=== PATIENT | female | born 1990 | race American Indian/Alaskan Native ===

== ENCOUNTER 2019-05-07 12:26 | Emergency (ER) | payer SELFPAY ==
--- NOTE | 2019-05-07 12:43 | Event Note ---
ED Screening Note Date of service: 05/07/19 Time: 12:41 ED Screening Note: This is a 28 y.o. F. that presents to the ER with back pain, fever, and dysuria x 1 week. This initial assessment/diagnostic orders/clinical plan/treatment(s) is/are subject to change based on patients health status, clinical progression and re- assessment by fellow clinical providers in the ED. Further treatment and workup at subsequent clinical providers discretion. Patient/guardian urged not to elope from the ED as their condition may be serious if not clinically assessed and managed. Initial orders include: UA & urine hCG
[2019-05-07 12:44] VITALS: BP 160/99
--- NOTE | 2019-05-07 13:51 | Emergency Department Report ---
ED Female HPI - General Chief complaint: Back Pain/Injury Stated complaint: BACK PAIN/TEMP/HEADACHE/FATIGUE Time Seen by Provider: 05/07/19 12:41 Source: patient Mode of arrival: Ambulatory Limitations: No Limitations - History of Present Illness Initial comments: 28 yo female c/o painful urination and low back pain x 1 week. Low abdominal pain x 3 days associated with fever and chills. She denies vomiting and diarrhea. MD Complaint: dysuria -: week(s) (1) Radiation: suprapubic Quality: aching Consistency: constant Improves with: none Worsens with: none Are you Now?: No Associated Symptoms: abdominal pain, fever/chills, dysuria. denies: vaginal discharge, vaginal bleeding, nausea/vomiting, loss of appetite, hematuria, rash, seizure - Related Data Sexually active: Yes Previous Rx's Medication Instructions Recorded Last Taken Type cephALEXin [Keflex] 500 mg PO Q12HR 7 Days #14 cap 05/07/19 Unknown Rx Allergies Allergy/AdvReac Type Severity Reaction Status Date / Time No Known Allergies Allergy Verified 05/07/19 12:28 ED Review of Systems ROS: Stated complaint: BACK PAIN/TEMP/HEADACHE/FATIGUE Other details as noted in HPI Comment: All other systems reviewed and negative Endocrine: no symptoms reported Gastrointestinal: abdominal pain. denies: nausea, vomiting, diarrhea Genitourinary: dysuria, frequency. denies: hematuria, discharge Neurological: denies: headache, weakness ED Past Medical Hx - Past Medical History Previous Medical History?: Yes Additional medical history: scoliosis - Surgical History Past Surgical History?: Yes Additional Surgical History: bartholoin cyst removal 2013 - Social History Smoking Status: Never Smoker Substance Use Type: None - Medications Home Medications: Home Medications Medication Instructions Recorded Confirmed Last Taken Type cephALEXin [Keflex] 500 mg PO Q12HR 7 Days #14 cap 05/07/19 Unknown Rx ED Physical Exam - General Limitations: No Limitations General appearance: alert, in no apparent distress - Head Head exam: Present: atraumatic - Eye Eye exam: Present: normal appearance - ENT ENT exam: Present: normal exam, TM's normal bilaterally - Neck Neck exam: Present: normal inspection - Respiratory Respiratory exam: Present: normal lung sounds bilaterally - Cardiovascular Cardiovascular Exam: Present: regular rate, normal heart sounds - GI/Abdominal GI/Abdominal exam: Present: soft, normal bowel sounds - Extremities Exam Extremities exam: Present: normal inspection - Back Exam Back exam: Present: CVA tenderness (R), CVA tenderness (L) - Neurological Exam Neurological exam: Present: alert, oriented X3 - Psychiatric Psychiatric exam: Present: normal affect - Skin Skin exam: Present: warm, dry, intact, normal color ED Course Vital Signs 05/07/19 12:41 Temperature 99 F Pulse Rate 107 H Respiratory 20 Rate Blood Pressure 160/99 O2 Sat by Pulse 98 Oximetry ED Medical Decision Making - Medical Decision Making 28 yo female 1 week of low back pain and dysuria. Negative . + URI urine WBC 182. Discharge with Cephalexin, oral hydration prn advil or tylenol and follow up with PCP or [facility]. Critical Care Time: No Critical care attestation.: If time is entered above; I have spent that time in minutes in the direct care of this critically ill patient, excluding procedure time. ED Disposition Clinical Impression: UTI (urinary tract infection) Qualifiers: Urinary tract infection type: acute cystitis Hematuria presence: without hematuria Qualified Code(s): N30.00 - Acute cystitis without hematuria Disposition: DC- TO HOME OR SELFCARE Is pt being admited?: No Does the pt Need Aspirin: No Condition: Stable Instructions: Urinary Tract Infection in Women (ED) Additional Instructions: Drink 8 to 10 Cups of water daily. Empty bladder frequently. Urinate after sex. Follow up with your doctor in 2-3 days or return to the ER for any worsening symptoms such as fever, worsening pain unable to void. Prescriptions: cephALEXin [Keflex] 500 mg PO Q12HR 7 Days #14 cap Time of Disposition: 15:04
[2019-05-07] MEDS ORDERED: IBUPROFEN 800 MG TAB PO ONE (13:53)
[2019-05-07 14:33] LABS: Bacteria,Urine 1+ /HPF (Negative); Bilirubin,Urine NEG (Negative); Blood,Urine MOD (Negative); Color,Urine Yellow (Yellow); Mucus,Urine FEW /HPF; Urobilinogen,Urine < 2.0 mg/dL (<2.0); WBC,Urine > 182.0 /HPF (0.0-6.0)
[2019-05-07 14:34] LABS: HCG Qualitative,Urine Negative (Negative)
== END 2019-05-07 15:35 | disposition home or self-care (01) ==
LOC: ED 12:26
DX: N39.0 Urinary tract infection, site not specified (principal); Z98.890 Other specified postprocedural states
CPT/HCPCS: 81001; 81025

== ENCOUNTER 2019-05-25 02:46 | Emergency (ER) | payer SELFPAY ==
[2019-05-25] MEDS ORDERED: LIDOCAINE VISCOUS 2% 15 ML ORAL LIQD PO ONE (05:41)
[2019-05-25] MEDS ORDERED: dexAMETHasone 20 MG/5 ML VIAL IM ONE (05:41)
[2019-05-25] MEDS ORDERED: AMOXICILLIN/K CLAV 875/125MG TAB PO ONE (05:41)
[2019-05-25] MEDS ORDERED: KETOROLAC 30 MG/1 ML INJ IM ONE (05:41)
--- NOTE | 2019-05-25 06:33 | Emergency Department Report ---
- General Chief Complaint: Upper Respiratory Infection Stated Complaint: BLOOD (TRACE) IN SPETUM AND VAROUS OTHER SYMPTOMS Source: patient Mode of arrival: Ambulatory Limitations: No Limitations - History of Present Illness Initial Comments: Patient is a 28-year-old -[place] female with no past medical history who presents to the ED with a complaint of acute onset persistent severe nasal and sinus congestion, frontal sinus pressure, sore throat with dysphagia, swollen throat and hoarseness with a dry cough for the last 3 days. Patient also complains of subjective intermittent fever of up to 100F for the last 2 days. Patient states that she has been taking [id number] decongestants with no relief. Patient denies dizziness, chest pain, shortness of breath, abdominal pain, nausea, vomiting, diarrhea, change in vision, syncope or neck pain, back pain or hemoptysis. MD Complaint: fever, cough, sore throat, rhinorrhea, nasal congestion, sinus pain -: Sudden, days(s) (3) Severity: severe Severity scale (0 -10): 7 Quality: sharp, aching Consistency: constant Improves With: nothing Worsens With: nothing Associated Symptoms: denies other symptoms, fever, chills, myalgias, headache, rhinorrhea, nasal congestion, sore throat, cough, hoarseness. denies: diaphoresis, stiff neck, chest pain, shortness of breath, nausea, diarrhea, dysuria, rash, confusion, right sweats, weight loss, ear pain, other Treatments Prior to Arrival: Acetaminophen - Related Data Previous Rx's Medication Instructions Recorded Last Taken Type cephALEXin [Keflex] 500 mg PO Q12HR 7 Days #14 cap 05/07/19 Unknown Rx Amoxicillin/Potassium Clav 1 each PO Q12H #30 tablet 05/25/19 Unknown Rx [Augmentin 875-125 Tablet] Benzonatate [Tessalon Perles] 100 mg PO Q8HR #30 capsule 05/25/19 Unknown Rx Cetirizine HCl [Zyrtec 10mg tab] 10 mg PO DAILY #30 tablet 05/25/19 Unknown Rx Ibuprofen [Motrin] 800 mg PO Q8HR PRN #24 tablet 05/25/19 Unknown Rx Lidocaine Viscous 2% 10 ml PO Q6H PRN #120 ml 05/25/19 Unknown Rx Prednisone [predniSONE 10 mg 10 mg PO .TAPER #21 tab.ds.pk 05/25/19 Unknown Rx (6-Day Pack, 21 Tabs)] Allergies Allergy/AdvReac Type Severity Reaction Status Date / Time No Known Allergies Allergy Verified 05/07/19 12:28 ED Review of Systems ROS: Stated complaint: BLOOD (TRACE) IN SPETUM AND VAROUS OTHER SYMPTOMS Other details as noted in HPI Constitutional: chills, fever, malaise Eyes: denies: eye pain, eye discharge, vision change ENT: throat pain, congestion. denies: ear pain Respiratory: cough. denies: shortness of breath, wheezing Cardiovascular: denies: chest pain, palpitations Endocrine: no symptoms reported Gastrointestinal: denies: abdominal pain, nausea, diarrhea Genitourinary: denies: urgency, dysuria, discharge Musculoskeletal: arthralgia, myalgia. denies: back pain, joint swelling Skin: denies: rash, lesions Neurological: headache. denies: weakness, paresthesias Psychiatric: denies: anxiety, depression Hematological/Lymphatic: denies: easy bleeding, easy bruising ED Past Medical Hx - Past Medical History Previous Medical History?: Yes Additional medical history: scoliosis - Surgical History Past Surgical History?: Yes Additional Surgical History: bartholoin cyst removal 2013 - Social History Smoking Status: Never Smoker Substance Use Type: None - Medications Home Medications: Home Medications Medication Instructions Recorded Confirmed Last Taken Type cephALEXin [Keflex] 500 mg PO Q12HR 7 Days #14 cap 05/07/19 Unknown Rx Amoxicillin/Potassium Clav 1 each PO Q12H #30 tablet 05/25/19 Unknown Rx [Augmentin 875-125 Tablet] Benzonatate [Tessalon Perles] 100 mg PO Q8HR #30 capsule 05/25/19 Unknown Rx Cetirizine HCl [Zyrtec 10mg tab] 10 mg PO DAILY #30 tablet 05/25/19 Unknown Rx Ibuprofen [Motrin] 800 mg PO Q8HR PRN #24 tablet 05/25/19 Unknown Rx Lidocaine Viscous 2% 10 ml PO Q6H PRN #120 ml 05/25/19 Unknown Rx Prednisone [predniSONE 10 mg 10 mg PO .TAPER #21 tab.ds.pk 05/25/19 Unknown Rx (6-Day Pack, 21 Tabs)] ED Physical Exam - General Limitations: No Limitations General appearance: alert, in no apparent distress - Head Head exam: Present: atraumatic, normocephalic, normal inspection - Eye Eye exam: Present: normal appearance, PERRL, EOMI Pupils: Present: normal accommodation - ENT ENT exam: Present: mucous membranes moist, TM's normal bilaterally, normal external ear exam, other (grossly congested nasal passages, erythematous swelling oropharynx and tonsils) - Neck Neck exam: Present: normal inspection, full ROM, lymphadenopathy. Absent: te nderness, meningismus, thyromegaly - Respiratory Respiratory exam: Present: normal lung sounds bilaterally. Absent: respiratory distress, wheezes, rales, stridor, chest wall tenderness, decreased breath sounds - Cardiovascular Cardiovascular Exam: Present: normal rhythm, tachycardia, normal heart sounds. Absent: systolic murmur, diastolic murmur, rubs, gallop - GI/Abdominal GI/Abdominal exam: Present: soft, normal bowel sounds. Absent: tenderness, guarding, rebound, hyperactive bowel sounds, organomegaly - Extremities Exam Extremities exam: Present: normal inspection, full ROM, normal capillary refill. Absent: pedal edema, joint swelling - Back Exam Back exam: Present: normal inspection, full ROM. Absent: tenderness, CVA tenderness (R), CVA tenderness (L), muscle spasm, paraspinal tenderness, vertebral tenderness - Neurological Exam Neurological exam: Present: alert, oriented X3, CN II-XII intact, normal gait, reflexes normal - Psychiatric Psychiatric exam: Present: normal affect, normal mood - Skin Skin exam: Present: warm, dry, intact, normal color. Absent: rash ED Course Vital Signs 05/25/19 02:49 Temperature 99.8 F H Pulse Rate 111 H Respiratory 14 Rate Blood Pressure 147/97 O2 Sat by Pulse 99 Oximetry ED Medical Decision Making - Medical Decision Making This is a 28-year-old female who presented to the ED with nasal and sinus congestion, frontal sinus pressure, sore throat, hoarseness, dry cough and diffuse body aches and pains for 3 days. In the ED, patient is alert and oriented 3 and is not in distress but tachycardic in triage. Patient was treated in the ED for pain and also given steroid in the ED. On reevaluation, patient's pain improved and tachycardia also resolved. Patient was discharged home on medications and advised to follow-up with her primary care physician in 7-10 days for reevaluation or return to the ED immediately if symptoms get worse. - Differential Diagnosis strep pharyngitis; URI; Bronchitis; Sinusitis Critical care attestation.: If time is entered above; I have spent that time in minutes in the direct care of this critically ill patient, excluding procedure time. ED Disposition Clinical Impression: Acute upper respiratory infection Acute pharyngitis Qualifiers: Pharyngitis/tonsillitis etiology: other specified organisms Qualified Code(s): J02.8 - Acute pharyngitis due to other specified organisms Acute bronchitis Qualifiers: Bronchitis organism: other organism Qualified Code(s): J20.8 - Acute bronchitis due to other specified organisms Disposition: - TO HOME OR SELFCARE Is pt being admited?: No Does the pt Need Aspirin: No Condition: Stable Instructions: Acute Bronchitis (ED), Pharyngitis (ED), Upper Respiratory Infection (ED), Acute Bacterial Rhinosinusitis (ED) Additional Instructions: Take medications with food, drink plenty of fluids and follow-up with your primary care physician in 7-10 days for reevaluation. Return to the ED immediately if symptoms get worse. Prescriptions: Amoxicillin/Potassium Clav [Augmentin 875-125 Tablet] 1 each PO Q12H #30 tablet Lidocaine Viscous 2% 10 ml PO Q6H PRN #120 ml PRN Reason: Pain , Severe (7-10) Ibuprofen [Motrin] 800 mg PO Q8HR PRN #24 tablet PRN Reason: Pain , Severe (7-10) Prednisone [predniSONE 10 mg (6-Day Pack, 21 Tabs)] 10 mg PO .TAPER #21 tab.ds.pk Benzonatate [Tessalon Perles] 100 mg PO Q8HR #30 capsule Cetirizine HCl [Zyrtec 10mg tab] 10 mg PO DAILY #30 tablet Referrals: PRIMARY CARE, [Primary Care Provider] - 3-5 Days Forms: Work/School Release Form(ED) Time of Disposition: 06:44 Print Language: DANISH
[2019-05-25 07:00] VITALS: BP 125/83
== END 2019-05-25 07:00 | disposition home or self-care (01) ==
LOC: ED 02:46
DX: J06.9 Acute upper respiratory infection, unspecified (principal); J02.9 Acute pharyngitis, unspecified; J20.9 Acute bronchitis, unspecified; Z98.890 Other specified postprocedural states; Z79.899 Other long term (current) drug therapy
CPT/HCPCS: 96372; 99282; J1100; J1885

== ENCOUNTER 2020-09-11 17:02 | Outpatient (CLI) | payer MEDICAID ==
[2020-09-11 18:13] VITALS: BP 109/65
[2020-09-11] MEDS ORDERED: LACTATED RINGERS 1,000 ML IV ONE (19:34)
[2020-09-11 20:25] LABS: Bacteria,Urine 2+ /HPF (Negative); Bilirubin,Urine NEG (Negative); Blood,Urine NEG (Negative); Color,Urine Yellow (Yellow); Mucus,Urine 1+ /HPF; Protein,Urine <15 mg/dL mg/dL (Negative); Urobilinogen,Urine < 2.0 mg/dL (<2.0)
[2020-09-11] MEDS ORDERED: LIDOCAINE-MPF (1%) 10 MG/1 ML VIAL 5 ML INFILTRATI ONE (20:48)
== END 2020-09-11 21:25 | disposition home or self-care (01) ==
LOC: TRG 17:02 → APU 17:14 → TRG 21:25
DX: O26.893 Other specified pregnancy related conditions, third trimester (principal); R10.2 Pelvic and perineal pain; M54.9 Dorsalgia, unspecified; O47.03 False labor before 37 completed weeks of gestation, third trimester; O13.3 Gestational [pregnancy-induced] hypertension without significant proteinuria, third trimester; Z3A.28 28 weeks gestation of pregnancy
CPT/HCPCS: 59025; 81001; 96372; J0696